=== PATIENT | female | born 1980 | race Caucasian/White ===

== ENCOUNTER 2020-06-12 10:14 | Emergency (ER) | payer MEDICAID ==
[~2020-06-12] VITALS: Ht 170.2 cm; Wt 77.3 kg
[2020-06-12] MEDS ORDERED: METHOCARBAMOL 500 MG TABLET PO ONE (11:00)
[2020-06-12] MEDS ORDERED: LIDOCAINE 5% TRANSDERMAL PATCH TD ONE (11:00)
[2020-06-12] MEDS ORDERED: IBUPROFEN 600 MG TABLET PO ONE (11:00)
[2020-06-12 11:55] VITALS: BP 112/68
== END 2020-06-12 12:25 | disposition home or self-care (01) ==
LOC: EMS 10:18
DX: M54.9 Dorsalgia, unspecified (principal); V43.52XA Car driver injured in collision with other type car in traffic accident, initial encounter; Y93.89 Activity, other specified; Y92.89 Other specified places as the place of occurrence of the external cause; Y99.8 Other external cause status
CPT/HCPCS: 72070; 72100; Z7502; Z7610